=== PATIENT | female | born 2005 | race Caucasian/White ===

== ENCOUNTER 2025-06-12 15:59 | Emergency (ER) | payer OTHER, SELFPAY ==
--- OUTSIDE RECORDS SUMMARY | 2025-06-09 09:30 | XMS_ITS | Encounter Summary ---
Author Organization [facility] Address [address] [place] [address] Phone Care Team Providers Care Rn Intern Name Role Phone Lisbeth Palacio MD Primary Care Provider [phone] Reason for Visit * Reason Comments Well Visit 19 yrs Encounter Details Date Type Department Care Team ([facility] st Contact Info) Description 06/09/2025 9:30 AM EST [facility] [address] [address] Lisbeth Palacio MD [address] [place] [id number] Encounter for well adult exam with abnormal findings (Primary Dx); Need for vaccination; BMI 29.0-29.9,adult; Skin problem; Acute stress disorder; Back pain, unspecified back location, unspecified back pain laterality, unspecified chronicity; Concussion with unknown loss of consciousness status, initial encounter; Depression with anxiety; Trauma and stressor-related disorder; Vocal cord dysfunction; Oral contraceptive use Social History Tobacco Use Types Packs/Day Years Used Date Smoking Tobacco: Never Smokeless Tobacco: Never Alcohol Use Standard Drinks/Week Comments Never 0 (1 standard drink = 0.6 oz pur e alcohol) Hunger/Food Answer Date Recorded In the last 12 months, did y ou or your family ever eat less than you felt you should because there wasn't enough money for food? No 06/08/2025 Stable Housing Answer Date Recorded Are you worried that in the next 2 months you may not have stable housing? No 06/08/2025 Transportation Concerns Answer Date Rec orded In the last 12 months, have you or your family ever had to go without healthcare because you didn't have a way to get there? No 06/08/2025 Hazards in Home Answer Date Recorded Think about the place you li ve. Do you have problems with any of the following? Pests (mice or roaches), mold, no/not working smoke detectors, water leaks, no window guards. No 2024 Financing Utilities Answer Date Recorde d In the last 12 months, has t he electric, gas, oil, or water company threatened to shut off your services in your home? No 06/08/2025 Safety at Home Answer Date Recorded Are you or your family worried about feeling saf e in your home? No 06/08/2025 Outside Support Answer Date Recorded Do you feel that you need mo re support from other people or programs to help you care for yourself or your family? No 06/08/2025 Understanding Health Concerns Answer Da te Recorded Do you need help understandi ng your or your child's healthcare needs (diagnosis, medications, plan, etc.)? No 06/08/2025 Financing Health Concerns Answer Date R ecorded In the last 12 months, was t here a time when your child needed to see a doctor or get medications or supplies but could not because of cost? No 06/08/2025 Missing School or Work Answer Date Juan Alberto rded Did you or your child miss s chool or work because of a health problem that could have been avoided? No 06/08/2025 Child Education Answer Date Recorded Do you have concerns about y our/your child's learning or behavior in school, preschool, or daycare? No 06/08/2025 Comments No Sex and Gender Information Value Date Recorded Sex Assigned at Female 09/06/2023 11:14 AM EST Legal Sex Female 6:09 PM EDT Gender Identity Female 06/13/2021 5:02 PM EST Sexual Orientation Straight 09/06/2023 11 :14 AM EST documented as of this encounter Last Filed Vital Signs Vital Sign Reading Time Taken Comments Blood Pressure 110/80 06/09/2025 9:18 AM EST Pulse - - Temperature - - Respiratory Rate - - Oxygen Saturation - - Inhaled Oxygen Concentration - - Weight 83.5 kg (184 lb) 06/09/2025 9:18 AM EST Height 167.6 cm (5' 6 ) 06/09/2025 9:18 AM EST Body Mass Index 29.7 06/09/2025 9:18 AM EST documented in this encounter Patient Instructions * Patient Instructions* Lisbeth Palacio MD - 06/09/2025 9:30 AM EST Images from the original note were not included. Well Visit, Ages 18 to 65: Care Instructions Well visits can help you stay healthy. Your doctor has checked your overall health and may have suggested ways to take good care of yourself. Your doctor also may have recommended tests. You can helpprevent illness with healthy eating, good sleep, vaccinations, regular exercise, and other steps. Get the tests that you and your doctor decide on. Depending on your age and risks, examples might include screening for diabetes; hepatitis C; HIV; and cervical, breast, lung, and colon cancer. Screening helps find diseases before any symptoms appear. Eat healthy foods. Choose fruits, vegetables, whole grains, lean protein, and low-fat dairy foods. Limit saturated fat and reduce salt. Limit alcohol. Men should have no more than 2 drinks a day. Women should have no more than 1. For some people, no alcohol is the best choice. Exercise. Get at least 30 minutes of exercise on most days of the week. Walking can be a good choice. Reach and stay at your healthy weight. This will lower your risk for many health problems. Take care of your mental health. Try to stay connected with friends, family, and community, and find ways to manage stress. If you're feeling depressed or hopeless, talk to someone. A counselor can help. If you don't have acounselor, talk to your doctor. Talk to your doctor if you think you may have a problem with alcohol or drug use. This includes prescription medicines, marijuana, and other drugs. Avoid tobacco and nicotine: Don't smoke, vape, or chew. If you need help quitting, talk to your doctor. Practice safer sex. Getting tested, using condoms or dental dams, and limiting sex partners can help prevent STIs. Use control if it's important to you to prevent . Talk with your doctor about your choices and what might be best for you. Prevent problems where you can. Protect your skin from too much sun, wash your hands, brush your teeth twice a day, and wear a seat belt in the car. Where can you learn more? Scan the QR code or Go to https://www.Preventes.fr.[employer]/patientEd Enter P072 in the search box to learn more about Well Visit, Ages 18 to 65: Care Instructions. Current as of: January 19, 2025 Content Version: 14.6 ?? [employer]. Care instructions adapted under license by your healthcare professional. If you have questions about a medical condition or this instruction, always ask your healthcare professional. [employer], disclaims any warranty or liability for your use of this information. Learning About Dental Care Basic dental care includes brushing and flossing your teeth. It also includes going to your dentistfor checkups and cleanings. This care can help your teeth last a long time. Brushing and flossing remove plaque. Plaque is bacteria that can cause gum disease and cavities (holes in your teeth from tooth decay). Brushing and flossing also remove bacteria that cause bad breath. And they help prevent stains on your teeth. What can you do to prevent dental problems? Blanca your teeth twice a day, and floss at least once a day. Replace your toothbrush every 3 to 4 months. Choose a toothbrush with soft bristles. Use a fluoride toothpaste. Follow your dentist's directions on how to brush your teeth. Go to all your regular dental checkups and cleanings. Choose healthy foods that are good for your teeth and gums, such as whole grains, vegetables, and fruits. Avoid foods and drinks that contain a lot of sugar, and try not to snack before bedtime. Avoid using tobacco products, and talk to your doctor if you need help quitting. Where can you learn more? Scan the QR code or Go to https://www.Preventes.fr.net/patientEd Enter C432 in the search box to learn more about Learning About Dental Care. Current as of: February 19, 2024 Content Version: 14.6 ?? [employer]. Care instructions adapted under license by your healthcare professional. If you have questions about a medical condition or this instruction, always ask your healthcare professional. [employer], disclaims any warranty or liability for your use of this information. documented in this encounter Progress Notes * Lisbeth Palacio MD - 06/09/2025 9:30 AM EST Chief Complaint Well Visit (19 yrs) History of Present Illness Morena is a 19 y.o. female who presents to the office alone. Specialists since last WCC: none Recent ER/urgent care visits: UC 3 weeks ago blisters Concerns: blisters Diet, Elimination, Education, Activities, Home Environment Recurring blisters on foot, was tx for athlete's foot in past it worked. About 3 wks ago was given abx pills, it went away, now came back over a week ago. Itches. 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 No lead risk factors. No firearms in the house. CO detectors in the home. Smoke detectors in the home. Properly restrained in the car. . DCF: No Fathers occupation: Specialty Printing Pets at Home: Yes Dog, Cats Lives with parents, brother and sister PHQ-4 Anxiety Screen = 1 (Positive > 2) PHQ-4 Depression Screen = 0 (Positive > 2) Review of Systems Negative except as in HPI. Marked as Taking Medication Sig EPINEPHrine 0.3 MG/0.3ML injection syringe INJECT INTRAMUSCULARLY FOR ALLERGIC REACTIONS, CALL 911 SEEK MEDICAL ATTENTION fexofenadine 180 MG tablet Take 2 tablets (360 mg total) by mouth once daily. norgestimate-ethinyl estradiol 0.25-35 MG-MCG per tablet TAKE 1 TABLET BY MOUTH EVERY DAY Allergies Allergen Reactions Environmental Dust mites, trees, mold, pollen, cat, dog, feathers Soy Allergy (Obsolete) Menses Hx: Pattern: regular Comments: Period more regular. Taking OCP daily Vital Signs BP 110/80 Ht 5' 6 (167.6 cm) Wt 184 lb (83.5 kg) BMI 29.70 kg/m?? Labs Lab Results Component Value Date Hemoglobin, POC 11.6 06/09/2025 Labs Results for orders placed or performed in visit on 06/09/25 POCT hemoglobin Result Value Ref Range Hemoglobin, POC 11.6 11.4 - 14.8 g/dL POCT , urine Result Value Ref Range Preg Test, Urine, POC Negative Negative, Presumptive negative Control Band Present Present Physical Exam General Well appearing, no acute distress Head Normocephalic/atraumatic Eyes PERRLA, EOMI Ears Canals normal, TMs translucent bilaterally Nose Nares patent and clear Mouth/ Throat Oropharynx clear, moist mucous membranes Neck Supple, no cervical adenopathy, thyroid normal Cor Regular rate and rhythm, no murmurs Lungs Clear to auscultation bilaterally Chest/Back Symmetric chest and breasts, no scoliosis Abdomen Soft, non-distended, non-tender, no organomegaly, normal bowel sounds deferred Extremities Warm, well perfused Skin No rash, plantar surface of left foot with some peeling and new skin Neuro Normal strength upper and lower extremities, normal balance and gait Assessment and Plan Encounter for well adult exam with abnormal findings (Primary) - Brief Behavioral Assessment - Normal (PSC,PHQ9,Olya,etc) - Chlamydia and Gonorrhoea, Amplified - POCT hemoglobin - POCT , urine Need for vaccination Comments: She declined COVID booster today. Orders: - IIV3 Influenza, split virus, trivalent, PF, IM BMI 29.0-29.9,adult Skin problem Assessment & Plan: Left foot with recurrent blistering and peeling. Was tx with oral abx via 3 weeks ago, today hasnew skin and some peeling. Refer to Podiatry, numbers given. Orders: - mupirocin 2 % ointment; Apply topically 3 (three) times a day for 7 days. To area on bottom of left foot Dispense: 30 g; Refill: 0 Acute stress disorder Assessment & Plan: She is doing well at the current time with good support from family, friends, boyfriend. Encouragedto reach out at any time to re establish counseling as needed. Back pain, unspecified back location, unspecified back pain laterality, unspecified chronicity Assessment & Plan: Not a current concern. Concussion with unknown loss of consciousness status, initial encounter Assessment & Plan: Has resolved. Depression with anxiety Assessment & Plan: She is doing well at the current time with good support from family, friends, boyfriend. Encouragedto reach out at any time to re establish counseling as needed. Trauma and stressor-related disorder Assessment & Plan: She is doing well at the current time with good support from family, friends, boyfriend. Encouragedto reach out at any time to re establish counseling as needed. Vocal cord dysfunction Assessment & Plan: Not a current concern. Oral contraceptive use Assessment & Plan: Is happy with her OCP, is getting menses during the expected week. She requests testing today which is negative. Encouraged to use condoms every time. I counseled the family and/or patient on the recommended vaccine(s). Risks and benefits reviewed for all components of the vaccine(s) administered. Current Vaccine Information Statement (VIS) given prior to administering vaccine(s). See Vaccination Log in electronic health record for immunization details. Counseled and reviewed: Physical activity and diet Drugs, tobacco, and alcohol Seat belt and helmet for bicycle Sexual activity, safe sex practices, and healthy relationships Self-breast exam; encouraged to be done monthly Follow-up and Dispositions Return in about 1 year (around 06/09/2026) for Well Visit, sooner if needed. documented in this encounter Miscellaneous Notes * Assessment & Plan Note - Lisbeth Palacio MD - 06/09/2025 9:54 AM EST Associated Problem(s): Oral contraceptive use Is happy with her OCP, is getting menses during the expected week. She requests testing today which is negative. Encouraged to use condoms every time. * Assessment & Plan Note - Lisbeth Palacio MD - 06/09/2025 9:53 AM EST Associated Problem(s): Vocal cord dysfunction Not a current concern. * Assessment & Plan Note - Lisbeth Palacio MD - 06/09/2025 9:52 AM EST Associated Problem(s): Trauma and stressor-related disorder She is doing well at the current time with good support from family, friends, boyfriend. Encouragedto reach out at any time to re establish counseling as needed. * Assessment & Plan Note - Lisbeth Palacio MD - 06/09/2025 9:51 AM EST Associated Problem(s): Depression with anxiety She is doing well at the current time with good support from family, friends, boyfriend. Encouragedto reach out at any time to re establish counseling as needed. * Assessment & Plan Note - Lisbeth Palacio MD - 06/09/2025 9:51 AM EST Associated Problem(s): Concussion (Resolved 06/09/2025) Has resolved. * Assessment & Plan Note - Lisbeth Palacio MD - 06/09/2025 9:50 AM EST Associated Problem(s): Back pain Not a current concern. * Assessment & Plan Note - Lisbeth Palacio MD - 06/09/2025 9:50 AM EST Associated Problem(s): Acute stress disorder (Resolved 06/09/2025) She is doing well at the current time with good support from family, friends, boyfriend. Encouragedto reach out at any time to re establish counseling as needed. * Assessment & Plan Note - Lisbeth Palacio MD - 06/09/2025 9:36 AM EST Associated Problem(s): Skin problem Left foot with recurrent blistering and peeling. Was tx with oral abx via UC 3 weeks ago, today hasnew skin and some peeling. Refer to Podiatry, numbers given. documented in this encounter Plan of Treatment Upcoming Encounters Date Type Department Care Team (Late st Contact Info) Description 06/15/2026 9:30 AM EST [facility] Visit [facility] [address] [address] Lisbeth Palacio MD [address] [place] [id number] documented as of this encounter Procedures * Due to [facility] law, this organization might not be sharing sensitive test results. Procedure Name Priority Date/Time Associated Diagnosis Comments POCT , URINE Routine 06/09/2025 9:58 AM EST Encounter for well adult exam with abnormal findings CHLAMYDIA AND GONORRHEA, AMPLIFIED Routine 06/09/2025 9:48 AM EST Encounter for well adult exam with abnormal findings POCT HEMOGLOBIN Routine 06/09/2025 9:24 AM EST Encounter for well adult exam with abnormal findings BRIEF BEHAVIORAL ASSESSMENT - NORMAL(PSC,PHQ9,VAND ERBILT,ETC) Routine 06/09/2025 9:16 AM EST Encounter for well adult exam with abnormal findings documented in this encounter Results * Due to [facility] law, this organization might not be sharing sensitive test results. * POCT , urine (06/09/2025 9:58 AM EST) Preg Test, Urine, POC Negative Negative, Presumptive negative [facility] Control Band Present Present [facility] Urine 06/09/2025 9:58 AM EST us Lisbeth Palacio MD POINT OF CARE TEST ORDERABLES Final Result [facility] [address] [address] * Chlamydia and Gonorrhoea, Amplified (06/09/2025 9:48 AM EST) C trach KEVIN Negative Negative [facility] N gonorrhoeae KEVIN Negative Negative [facility] Urine (Urine) 06/09/2025 9:4 8 AM EST 06/09/2025 Comment:Urine Narrative [facility] - 06/10/2025 5:05 PM EST Performed at: 01 - [facility], [address], [place], [place] [id number] Expedition Supervisor: Juan R Mendoza MD, Phone: [phone] us Lisbeth Palacio MD LAB MICROBIOLOGY - GENERAL OR DERABLES Final Result Performing Organization Address City/[facility] Co de Phone Number [facility] [address] [place] [address] * POCT hemoglobin (06/09/2025 9:24 AM EST) Hemoglobin, POC 11.6 11.4 - 14.8 g/dL [facility] Blood (Blood) 06/09/2025 9:2 4 AM EST us Lisbeth Palacio MD POINT OF CARE TEST ORDERABLES Final Result [facility] [address] [address] documented in this encounter Visit Diagnoses Diagnosis Encounter for well adult exam with abnormal findings- Primary Need for vaccination Need for prophylactic vaccination and inoculation against unspecified single disease BMI 29.0-29.9,adult Skin problem Acute stress disorder Unspecified acute reaction to stress Back pain, unspecified back location, unspecified back pain laterality, unspecified chronicity Concussion with unknown loss of consciousness status, initial encounter Depression with anxiety Dysthymic disorder Trauma and stressor-related disorder Vocal cord dysfunction Other diseases of vocal cords Oral contraceptive use documented in this encounter Care Teams Rn Intern Relationship Specialty Start Date End Date Lisbeth Palacio MD [address] [place] [address] PCP - General Pediatrics 06/08/25 documented as of this encounter
--- OUTSIDE RECORDS SUMMARY | 2025-06-12 15:59 | XMS_ITS | Encounter Summary ---
Author Organization [facility] Address [address] [place] [address] Phone Care Team Providers Care Sld Educational Aide Name Role Phone Lisbeth Palacio MD Primary Care Provider [phone] Reason for Visit * Reason Comments ED Admission Encounter Details Date Type Department Care Team ([facility] st Contact Info) Description 06/12/2025 3:59 PM EST - Present Emergency [facility] - Patient Ping Social History Tobacco Use Types Packs/Day Years [...] AM EST documented as of this encounter Plan of Treatment Upcoming Encounters Date Type Department Care Team (Late st Contact Info) Description 06/15/2026 9:30 AM EST [facility] [address] [address] Lisbeth Palacio MD [address] [place] [address] documented as of this encounter Visit Diagnoses Not on filedocumented in this encounter Care Teams Sld Educational Aide Relationship Specialty Start Date End Date Lisbeth Palacio MD [address] [place] [address] PCP - General Pediatrics 06/08/25 documented as of this encounter
[2025-06-12 16:04] VITALS: BP 147/74; PULSE 110; RESP 18; TEMP 36.2; O2SAT 98
--- NOTE | 2025-06-12 16:09 | ED_ITS ---
HPI - General Adult General Chief complaint: Extremity Injury, Lower Stated complaint: Foot pain/blisters Time Seen by Provider: 06/12/25 17:01 Source: patient, RN notes reviewed and old records reviewed Mode of arrival: ambulatory Limitations: no limitations History of Present Illness ED Provider: Clari BOLAND narrative: 19-year-old female presents for evaluation of left foot infection. She reports that she has been dealing with a rash to her left foot on and off for about a year. She has been treated multiple times pain She has received antifungals for athlete's foot She had received oral antibiotics and is currently on a topical antibiotics. She reports that her symptoms did improve on cephalexin about a month and a half ago but never completely resolved. The patient further states that her symptoms started after my foot was cut on a hard bristle bath mat. denies any fevers, chills Related Data Previous Rx's ?Medication ?Instructions ?Recorded levofloxacin 750 mg tablet 750 mg PO Q24H #7 tabs 05/23 09/15 Allergies Allergy/AdvReac Type Severity Reaction Status Date / Time soy Allergy Unknown Verified 06/12/25 16:07 Review of Systems 2 Constitutional: Constitutional: Denies body ache(s), Denies chills, Denies fever(s) and Denies headache(s) Eyes: Eyes: Denies blurry vision ENT: Denies vertigo, Denies dizziness and Denies headache(s) Cardiovascular: Cardiovascular: Denies chest pain and Denies dyspnea on exertion Respiratory: Respiratory: Denies cough and Denies dyspnea on exertion Gastrointestinal: Gastrointestinal: Denies abdominal pain Integumentary/Breasts: Skin/Breast: Reports erythema and Reports wounds Neurologic: Denies vertigo, Denies dizziness and Denies headache(s) PMFSH Social History Social History Advance Directives: No Advance Directives Information Provided: No Do you have a plan to hurt others: No Plan Physical Exam ED Vital Signs: Vital Signs - 24 hr 06/12/25 16:04 Temperature 97.1 F Pulse Rate 110 H Respiratory Rate 18 Blood Pressure 147/74 H Pulse Oximetry 98 Oxygen Delivery Method Room Air BMI result Body Mass Index 30.0 Const General: healthy appearing, comfortable, no acute distress, alert and awake Nutritional Appearance: well nourished Orientation/consciousness: patient oriented x3 HENMT Head: Yes normocephalic and Yes atraumatic Eyes Eyelids: Yes eyelids normal Conjunctivae: conjunctivae normal Sclerae: sclerae normal Corneas: corneas normal Pupils: Equal, round and reactive pupils present EOM: EOMs intact bilaterally Neck Neck: Yes full ROM Resp Effort & Inspection: normal respiratory effort, able to speak in complete sentences and not labored Skin Other: there was an erythematous rash to the dorsum of the left foot extending to the lateral aspect of the left foot and 5th toe. There are multiple vesicles, the area is tender to palpation. There is some central skin breakdown, no obvious purulence. No streaking erythema in the rash is not circumferential Neuro General: patient oriented x3 Cranial nerves: Yes Equal, round and reactive pupils present and Yes Bilaterally intact EOM present Cognition (Neuro): normal cognition Course Course Course Narrative: RME, this is a rapid medical exam performed by Luis F Montague please refer to primary provider for complete H&P- 19-year-old female presents for evaluation of a painful rash to her left foot. She has blistering erythema. She reports being treated with cephalexin a month and a half ago with some improvement but her symptoms returned. Plan for basic labs, inflammatory markers. Medical Decision Making Medical Decision Making MDM Narrative: 19-year-old female presents for evaluation of a recurrent rash to her left foot. Her symptoms started after she was cut after stepping wet bath mat. She reports the mat was made of hard bristles. Basic labs were ordered in she does not have a leukocytosis. Her ESR was normal limits but her CRP is slightly elevated. Labs are otherwise reassuring, she is not . Discussed with my attending, plan to treat the patient with Levaquin to cover Pseudomonas given the patient's history. She will be referred to Podiatry for further evaluation and management as well as Dermatology for possible skin scraping. Vitals are stable and she is well-appearing. She is not meet sepsis criteria. Considered additional workup to evaluate for foreign body triage but ultimately given that her symptoms started about a year ago for this could be managed as an outpatient as it would not change the current management. Differential Diagnosis Differential Diagnoses: The differential diagnosis associated with the presentation includes Cellulitis Foreign body Dermatitis Pseudomonas aeruginosa folliculitis Lab Data 06/12/25 16:24 06/12/25 16:24 Labs: Lab Results 06/12/25 Range/Units 16:24 WBC 7.6 (4.8-10.8) X10*3/uL RBC 4.73 (4.20-5.50) X10*6/uL Hgb 13.7 (12.0-16.0) g/dl Hct 41.5 (37.0-47.0) % MCV 87.7 (80.0-98.0) fL MCH 29.0 (27.0-33.0) pg MCHC 33.0 (31.0-35.0) g/dl RDW 12.6 (11.0-16.0) % Plt Count 348 (160-400) X10*3/uL MPV 8.7 L (9.4-12.3) fL Immature Gran % (Auto) 0.1 (0.0-0.4) % Neut % (Auto) 60.5 (45-73) % Lymph % (Auto) 24.3 (20-40) % [place] % (Auto) 6.4 (2-11) % Eos % (Auto) 7.5 H (0-4) % Baso % (Auto) 1.2 (0-2) % Lymph # (Auto) 1.9 (1.2-4.9) X10*3/uL [place] # (Auto) 0.5 (0.1-1.2) X10*3/uL Eos # (Auto) 0.6 H (0.0-0.4) X10*3/uL Baso # (Auto) 0.1 (0.0-0.2) X10*3/uL Abs Immat Gran (auto) 0.01 (0.00-0.03) X10*3/uL Absolute Neuts (auto) 4.6 (2.0-8.3) x10*3/uL Absolute Nucleated RBC 0.000 (0.0-0.012) X10*3/uL Nucleated RBC % (auto) 0.0 (0.0-0.2) /100WBC ESR 3 (0-20) MM/HR Sodium 142 (135-145) mmol/L Potassium 3.8 (3.3-5.1) mmol/L Chloride 108 (96-108) mmol/L Carbon Dioxide 24 (22-29) mmol/L Anion Gap 14 (12-20) BUN 7 L (9-16) mg/dL Creatinine 0.59 (0.5-1.4) mg/dL Estim Creat Clear Calc 161.8 Estimated GFR > 60 Random Glucose 100 (60-115) mg/dL Calcium 9.5 (8.4-10.2) mg/dL Total Bilirubin 0.4 (0.0-1.0) mg/dL AST 21 (5-31) U/L ALT 12 (0-31) U/L Alkaline Phosphatase 66 (39-117) U/L C-Reactive Protein 1.84 H (< or = 0.50) mg/dL Total Protein 7.2 (6.5-8.0) g/dL Albumin 4.4 (3.5-5.0) g/dL Beta HCG, Quant < 2 mIU/mL Discharge Plan Discharge Clinical Impression: Cellulitis of left foot Patient Disposition: Home, Self-Care Instructions: Cellulitis (ED) Additional Instructions: your rash is consistent with a skin infection. I recommend that you follow up with Podiatry at the number provided. It is possible that you have a foreign body that has causing recurrent infections. Take the antibiotic once daily for 1 week. It is important that you are not overly active while taking this medication as it can cause tendon injury pain You should avoid running or heavy lifting Prescriptions: New levofloxacin 750 mg tablet 750 mg PO Q24H Qty: 7 0RF Referrals: [facility] [Provider Group] [facility] [Provider Group, Podiatry] Referral Note: left foot rash Stand Alone Forms: Work/School Release Print Language: Slovak
[2025-06-12 16:30] LABS: Hematocrit 41.5 % (37.0-47.0); Hemoglobin 13.7 g/dl (12.0-16.0); Imm Gran Abs Auto 0.01 X10*3/uL (0.00-0.03); Imm Gran Pct Auto 0.1 % (0.0-0.4); Lymphocytes Absolute Auto 1.9 X10*3/uL (1.2-4.9); MANUAL DIFF FLAG NO; Mean Corpuscular HGB Conc 33.0 g/dl (31.0-35.0); Mean Corpuscular Hemoglobin 29.0 pg (27.0-33.0); Mean Corpuscular Volume 87.7 fL (80.0-98.0); NRBC Abs Auto 0.000 X10*3/uL (0.0-0.012); NRBC Pct Auto 0.0 /100WBC (0.0-0.2); Platelet Count 348 X10*3/uL (160-400); Red Blood Count 4.73 X10*6/uL (4.20-5.50); White Blood Count 7.6 X10*3/uL (4.8-10.8)
[2025-06-12 16:54] LABS: Alanine Aminotransferase 12 U/L (0-31); Albumin Level 4.4 g/dL (3.5-5.0); Alkaline Phosphatase 66 U/L (39-117); Anion Gap 14 (12-20); Aspartate Amino Transferase 21 U/L (5-31); Blood Urea Nitrogen 7 mg/dL (9-16); Calcium 9.5 mg/dL (8.4-10.2); Carbon Dioxide 24 mmol/L (22-29); Chloride 108 mmol/L (96-108); Creatinine Clr Calc Pharmacy 161.8; Estimated Glomerular Filt Rate > 60; Potassium 3.8 mmol/L (3.3-5.1); Sodium 142 mmol/L (135-145); Total Protein 7.2 g/dL (6.5-8.0)
--- OUTSIDE RECORDS SUMMARY | 2025-06-12 17:19 | XMS_ITS | Encounter Summary ---
Author Organization [facility] Address [address] [place] [address] Phone Care Team Providers Care Contract Runner Name Role Phone Lisbeth Palacio MD Primary Care Provider [phone] Reason for Visit * Reason Comments Med Refill Encounter Details Date Type Department Care Team ([facility] st Contact Info) Description 09/01/2020 [facility]ill [facility] [address] [address] Azul Luo MD [address] [place] [id number] Dysmenorrhea Social History Tobacco Use Types Packs/Day Years Used Date Smoking Tobacco: Never Smokeless Tobacco: Never Alcohol Use Standard Drinks/Week Comments Never 0 (1 standard drink = 0.6 oz pur e alcohol) Hunger/Food Answer Date Recorded In the last 12 months, did y ou or your family ever eat less than you felt you should because there wasn't enough money for food? No 01/04/2020 Stable Housing Answer Date Recorded Are you worried that in the next 2 months you may not have stable housing? No 01/04/2020 Transportation Concerns Answer Date Rec orded In the last 12 months, have you or your family ever had to go without healthcare because you didn't have a way to get there? No 01/04/2020 Hazards in Home Answer Date Recorded Think about the place you li ve. Do you have problems with any of the following? Pests (mice or roaches), mold, no/not working smoke detectors, water leaks, no window guards. No 2019 Financing Utilities Answer Date Recorde d In the last 12 months, has t he electric, gas, oil, or water company threatened to shut off your services in your home? No 01/04/2020 Safety at Home Answer Date Recorded Are you or your family worried about feeling saf e in your home? No 01/04/2020 Outside Support Answer Date Recorded Do you feel that you need mo re support from other people or programs to help you care for yourself or your family? No 01/04/2020 Understanding Health Concerns Answer Da te Recorded Do you need help understandi ng your or your child's healthcare needs (diagnosis, medications, plan, etc.)? No 01/04/2020 Financing Health Concerns Answer Date R ecorded In the last 12 months, was t here a time when your child needed to see a doctor or get medications or supplies but could not because of cost? No 01/04/2020 Missing School or Work Answer Date Juan Alberto rded Did you or your child miss s chool or work because of a health problem that could have been avoided? No 01/04/2020 Comments No Sex and Gender Information Value Date Recorded Sex Assigned at Female 09/06/2023 11:14 AM EST Legal Sex Female 6:09 PM EDT Gender Identity Female 06/13/2021 5:02 PM EST Sexual Orientation Straight 09/06/2023 11 :14 AM EST documented as of this encounter Miscellaneous Notes * Telephone Encounter - Yomaira Nash MA - 09/01/2020 8:20 AM EST Request for refill on Estarylla OCP Forward to Dr. Luo for review and send to the pharmacy. Thanks documented in this encounter Plan of Treatment Upcoming Encounters Date Type Department Care Team (Late st Contact Info) Description 06/15/2026 9:30 AM EST Office Visit [facility] [address] [address] Lisbeth Palacio MD [address] [place] [phone] documented as of this encounter Visit Diagnoses Diagnosis Dysmenorrhea documented in this encounter Care Teams Contract Runner Relationship Specialty Start Date End Date Lisbeth Palacio MD [address] [place] [address] PCP - General Pediatrics 06/08/25 documented as of this encounter
--- OUTSIDE RECORDS SUMMARY | 2025-06-12 17:20 | XMS_ITS | Encounter Summary ---
Author Organization [facility] Address [address] [place] [address] Phone Care Team Providers Care Tree Fruit And Nut Farming Supervisor Name Role Phone Lisbeth Palacio MD Primary Care Provider [phone] Reason for Visit * Reason Comments Med Refill Encounter Details Date Type Department Care Team ([facility] st Contact Info) Description 07/23/2022 [facility]ill [facility] [address] [address] Azul Luo MD [address] [place] [id number] Trauma and stressor-related disorder Social History Tobacco Use Types Packs/Day Years Used Date Smoking Tobacco: Never Smokeless Tobacco: Never Alcohol Use Standard Drinks/Week Comments Never 0 (1 standard drink = 0.6 oz pur e alcohol) Hunger/Food Answer Date Recorded In the last 12 months, did y ou or your family ever eat less than you felt you should because there wasn't enough money for food? No 01/10/2021 Stable Housing Answer Date Recorded Are you worried that in the next 2 months you may not have stable housing? No 01/10/2021 Transportation Concerns Answer Date Rec orded In the last 12 months, have you or your family ever had to go without healthcare because you didn't have a way to get there? No 01/10/2021 Hazards in Home Answer Date Recorded Think about the place you li ve. Do you have problems with any of the following? Pests (mice or roaches), mold, no/not working smoke detectors, water leaks, no window guards. No 2020 Financing Utilities Answer Date Recorde d In the last 12 months, has t he electric, gas, oil, or water company threatened to shut off your services in your home? No 01/10/2021 Safety at Home Answer Date Recorded Are you or your family worried about feeling saf e in your home? No 01/10/2021 Outside Support Answer Date Recorded Do you feel that you need mo re support from other people or programs to help you care for yourself or your family? No 01/10/2021 Understanding Health Concerns Answer Da te Recorded Do you need help understandi ng your or your child's healthcare needs (diagnosis, medications, plan, etc.)? No 01/10/2021 Financing Health Concerns Answer Date R ecorded In the last 12 months, was t here a time when your child needed to see a doctor or get medications or supplies but could not because of cost? No 01/10/2021 Missing School or Work Answer Date Juan Alberto rded Did you or your child miss s chool or work because of a health problem that could have been avoided? No 01/10/2021 Comments No Sex and Gender Information Value Date Recorded Sex Assigned at Female 09/06/2023 11:14 AM EST Legal Sex Female 6:09 PM EDT Gender Identity Female 06/13/2021 5:02 PM EST Sexual Orientation Straight 09/06/2023 11 :14 AM EST documented as of this encounter Miscellaneous Notes * Telephone Encounter - Jazmin Gilbert - 07/23/2022 12:40 PM EST Request for sertraline 20 mg [facility] 06/25/22 Unsure if pt still on. Please refuse if not documented in this encounter Plan of Treatment Upcoming Encounters Date Type Department Care Team (Late st Contact Info) Description 06/15/2026 9:30 AM EST [facility] Visit [facility] [address] [address] Lisbeth Palacio MD [address] [place] [address] [id number] documented as of this encounter Visit Diagnoses Diagnosis Trauma and stressor-related disorder documented in this encounter Care Teams [employer] Supervisor Relationship Specialty Start Date End Date Lisbeth Palacio MD [address] [place] [address] PCP - General Pediatrics 06/08/25 documented as of this encounter
--- OUTSIDE RECORDS SUMMARY | 2025-06-12 17:20 | XMS_ITS | Encounter Summary ---
Author Organization [facility] Address [address] [place] [phone] Phone Care Team Providers Care Senior Reliability Engineer Name Role Phone Lisbeth Palacio MD Primary Care Provider [phone] Encounter Details Date Type Department Care Team (Late st Contact Info) Description 12/08/2017 Conversion Encounter [facility] [address] [address] Jamshid Ovalle MD Social History Tobacco Use Types Packs/Day Years Used Date Smoking Tobacco: Never Assessed Comments Unknown Sex and Gender Information Value Date Recorded [...] AM EST [facility] Visit [facility] [address] [address] Lisbeth Palacio MD [address] [place] [address] documented as of this encounter Visit Diagnoses Not on filedocumented in this encounter Care Teams Senior Reliability Engineer Relationship Specialty Start Date End Date Lisbeth Palacio MD [address] [place] [address] PCP - General Pediatrics 06/08/25 documented as of this encounter
--- OUTSIDE RECORDS SUMMARY | 2025-06-12 17:20 | XMS_ITS | Encounter Summary ---
Author Organization [facility] Address [address] [place] [address] Phone Care Team Providers Care Refrigerator Room Clerk Name Role Phone Lisbeth Palacio MD Primary Care Provider [phone] Reason for Visit * Reason Onset Date Comments Med Refill 08/05/2021 Sleep Study 08/05/2021 Encounter Details Date Type Department Care Team ([facility] st Contact Info) Description 08/05/2021 [facility]ill [facility] [address] [address] Azul Luo MD [address] [place] [id number] Dysmenorrhea Social History Tobacco Use Types Packs/Day [...] Telephone Encounter - Yomaira Nash MA - 09/29/2021 11:40 AM EST Mom notified * Telephone Encounter - Yomaira Nash MA - 09/29/2021 9:58 AM EST Response from [facility] Sleep Medicine appt on 11/03/21 @ 7:45 pm 1 parent must be with ronna Auguste. LM for mom OMAR Wu. * Telephone Encounter - Jazmin Gilbert - 09/20/2021 8:36 AM EST Form faxed to [facility] [phone] * Telephone Encounter - Azul Luo MD - 09/19/2021 4:07 PM EST Please set up sleep study for disrupted sleep, prolonged initiation and early waking. Family requests a Saturday or Saturday night if at all possible * Telephone Encounter - Camilla Segura MD - 08/07/2021 8:55 AM EST OK, thanks * Telephone Encounter - Nelly Costa LPN - 08/07/2021 8:44 AM EST Her refill was 84 tabs with 4 refills. Like a year supply * Telephone Encounter - Cmailla Segura MD - 08/07/2021 8:39 AM EST Last refill almost a year ago.. if she really is needing this, probably best to come in. * Telephone Encounter - Nelly Costa LPN - 08/07/2021 7:41 AM EST Refill request from the pharmacy BCP Last refill 09/01/20 Last [facility] 01/10/21 Last recheck has med recheck 09/19/21 Send to the pharmacy on file documented in this encounter Plan of Treatment Upcoming Encounters Date Type Department Care Team (Late st Contact Info) Description 06/15/2026 9:30 AM EST [facility] Visit [facility] [address] [address] Lisbeth Palacio MD [address] [place] [address] documented as of this encounter Visit Diagnoses Diagnosis Dysmenorrhea documented in this encounter Care Teams Refrigerator Room Clerk Relationship Specialty Start Date End Date Lisbeth Palacio MD [address] [place] [address] PCP - General Pediatrics 06/08/25 documented as of this encounter
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
--- OUTSIDE RECORDS SUMMARY | 2025-06-12 17:20 | XMS_ITS | Encounter Summary ---
Author Organization [facility] Address [address] [place] [address] Phone Care Team Providers Care Ssn/Ssbn Weapons Equipment Operator Name Role Phone Lisbeth Palacio MD Primary Care Provider [phone] Reason for Visit * Reason Onset Date Comments Med Refill 10/05/2022 Encounter Details Date Type Department Care Team ([facility] st Contact Info) Description 10/05/2022 Refill [facility] [address] [address] Azul Luo MD [address] [place] [phone] Environmental allergies Social History Tobacco Use Types Packs/Day Years [...] encounter Miscellaneous Notes * Telephone Encounter - Azul Luo MD - 10/05/2022 9:15 AM EDT Refill sent to pharmacy on record * Telephone Encounter - Yomaira Nash CMA - 10/05/2022 9:04 AM EDT Request for refill on Gloria allergy Forward to Dr. Luo. Thanks documented in this encounter Plan of Treatment Upcoming Encounters Date Type Department Care Team (Late st Contact Info) Description 06/15/2026 9:30 AM EST [facility] Visit [facility] [address] [address] Lisbeth Palacio MD [address] [place] [address] documented as of this encounter Visit Diagnoses Diagnosis Environmental allergies Other allergy, other than to medicinal agents documented in this encounter Care Teams Ssn/Ssbn Weapons Equipment Operator Relationship Specialty Start Date End Date Lisbeth Palacio MD [address] [place] [address] PCP - General Pediatrics 06/08/25 documented as of this encounter
--- OUTSIDE RECORDS SUMMARY | 2025-06-12 17:20 | XMS_ITS | Encounter Summary ---
Author Organization [facility] Address [address] [place] [address] Phone Care Team Providers Care Snout Puller Name Role Phone Lisbeth Palacio MD Primary Care Provider [phone] Encounter Details Date Type Department Care Team ([facility] st Contact Info) Description 06/09/2025 Results [facility]Up [facility] [address] [address] Yamini Goodman CMA [address] [place] [phone] Social History Tobacco Use Types Packs/Day Years [...] as of this encounter Miscellaneous Notes * Result Encounter Note - Yamini Goodman CMA - 06/09/2025 10:15 AM EST POCT labs normal * Result Encounter Note - Yamini Goodman CMA - 06/09/2025 9:44 AM EST POCT labs normal documented in this encounter Plan of Treatment Upcoming Encounters Date Type Department Care Team (Late st Contact Info) Description 06/15/2026 9:30 AM EST [facility] Visit [facility] [address] [address] Lisbeth Palacio MD [address] [place] [address] documented as of this encounter Visit Diagnoses Not on filedocumented in this encounter Care Teams Snout Puller Relationship Specialty Start Date End Date Lisbeth Palacio MD [address] [place] [address] PCP - General Pediatrics 06/08/25 documented as of this encounter
--- OUTSIDE RECORDS SUMMARY | 2025-06-12 17:20 | XMS_ITS | Encounter Summary ---
Author Organization [facility] Address [address] [place] [address] Phone Care Team Providers Care Bow String Maker Name Role Phone Lisbeth Palacio MD Primary Care Provider [phone] Reason for Visit * Reason Onset Date Comments Med Refill 06/02/2025 Encounter Details Date Type Department Care Team ([facility] st Contact Info) Description 06/02/2025 Refill [facility] [address] [address] Azul Luo MD [address] [place] [phone] Environmental allergies Social History Tobacco Use Types [...] there wasn't enough money for food? No 08/30/2023 Stable Housing Answer Date Recorded Are you worried that in the next 2 months you may not have stable housing? No 08/30/2023 Transportation Concerns Answer Date Rec orded In the last 12 months, have you or your family ever had to go without healthcare because you didn't have a way to get there? No 08/30/2023 Hazards in Home Answer Date Recorded Think about the place you li ve. Do you have problems with any of the following? Pests (mice or roaches), mold, no/not working smoke detectors, water leaks, no window guards. No 2023 Financing Utilities Answer Date Recorde d In the last 12 months, has t he electric, gas, oil, or water company threatened to shut off your services in your home? No 08/30/2023 Safety at Home Answer Date Recorded Are you or your family worried about feeling saf e in your home? No 08/30/2023 Outside Support Answer Date Recorded Do you feel that you need mo re support from other people or programs to help you care for yourself or your family? No 08/30/2023 Understanding Health Concerns Answer Da te Recorded Do you need help understandi ng your or your child's healthcare needs (diagnosis, medications, plan, etc.)? No 08/30/2023 Financing Health Concerns Answer Date R ecorded In the last 12 months, was t here a time when your child needed to see a doctor or get medications or supplies but could not because of cost? No 08/30/2023 Missing School or Work Answer Date Juan Alberto rded Did you or your child miss s chool or work because of a health problem that could have been avoided? No 08/30/2023 Comments No Sex and Gender Information Value Date Recorded Sex Assigned at Female 09/06/2023 11:14 AM EST Legal Sex Female 6:09 PM EDT Gender Identity Female 06/13/2021 5:02 PM EST Sexual Orientation Straight 09/06/2023 11 :14 AM EST documented as of this encounter Miscellaneous Notes * Telephone Encounter - Nelly Costa LPN - 06/02/2025 5:53 PM EST Refill request Fexofenadine 180 mg Last refill 08/04/24 Last WCC overdue but has an appt for 06/09/25 Last recheck none recently Send to the pharmacy on file documented in this encounter Plan of Treatment Upcoming Encounters Date Type Department Care Team (Late st Contact Info) Description 06/15/2026 9:30 AM EST [facility] Visit [facility] [address] [address] Lisbeth Palacio MD [address] [place] [phone] documented as of this encounter Visit Diagnoses Diagnosis Environmental allergies Other allergy, other than to medicinal agents documented in this encounter Care Teams Bow String Maker Relationship Specialty Start Date End Date Lisbeth Palacio MD [address] [place] [address] PCP - General Pediatrics 06/08/25 documented as of this encounter
--- OUTSIDE RECORDS SUMMARY | 2025-06-12 17:20 | XMS_ITS | Encounter Summary ---
Author Organization [facility] Address [address] [place] [address] Phone Care Team Providers Care Compressed Yeast Supervisor Name Role Phone Lisbeth Palacio MD Primary Care Provider [phone] Reason for Visit * Reason Comments Med Refill Encounter Details Date Type Department Care Team ([facility] st Contact Info) Description 05/27/2023 Refill [facility] [address] [address] Azul Luo MD [address] [place] [phone] Environmental allergies Social History Tobacco Use Types [...] Telephone Encounter - Azul Luo MD - 05/27/2023 10:09 AM EST Refill sent to pharmacy on record * Telephone Encounter - Danielle Abdul MA - 05/27/2023 10:07 AM EST Refill request for Fexofenadine 180 mg Last [facility] 06/25/22 Refilled 03/12/23 Please review documented in this encounter Plan of Treatment Upcoming Encounters Date Type Department Care Team (Late st Contact Info) Description 06/15/2026 9:30 AM EST [facility] Visit [facility] [address] [address] Lisbeth Palacio MD [address] [place] [address] documented as of this encounter Visit Diagnoses Diagnosis Environmental allergies Other allergy, other than to medicinal agents documented in this encounter Care Teams Compressed Yeast Supervisor Relationship Specialty Start Date End Date Lisbeth Palacio MD [address] [place] [address] PCP - General Pediatrics 06/08/25 documented as of this encounter
--- OUTSIDE RECORDS SUMMARY | 2025-06-12 17:20 | XMS_ITS | Encounter Summary ---
Author Organization [facility] Address [address] [place] [address] Phone Care Team Providers Care Cable Layer Name Role Phone Lisbeth Palacio MD Primary Care Provider [phone] Reason for Visit * Reason Comments Med Refill Encounter Details Date Type Department Care Team ([facility] st Contact Info) Description 06/17/2023 [facility]ill [facility] [address] [address] Azul Luo MD [address] [place] [address] Lower abdominal pain Social History Tobacco Use Types Packs/Day Years [...] Telephone Encounter - Azul Luo MD - 06/17/2023 8:35 AM EST Refill sent to pharmacy on record * Telephone Encounter - Jazmin Gilbert - 06/17/2023 8:29 AM EST Request for dicyclomine 10 mg cap [facility] 06/25/22 Last rf 04/19/23 documented in this encounter Plan of Treatment Upcoming Encounters Date Type Department Care Team (Late st Contact Info) Description 06/15/2026 9:30 AM EST [facility] Visit [facility] [address] [address] Lisbeth Palacio MD [address] [place], [place] [address] [address] documented as of this encounter Visit Diagnoses Diagnosis Lower abdominal pain Abdominal pain, other specified site documented in this encounter Care Teams Cable Layer Relationship Specialty Start Date End Date Lisbeth Palacio MD [address] [place] [address] PCP - General Pediatrics 06/08/25 documented as of this encounter
[2025-06-12 17:30] LABS: Erythrocyte Sedimentation Rate 3 MM/HR (0-20)
[2025-06-12 17:53] VITALS: BP 147/74; PULSE 110; RESP 18; TEMP 36.2; O2SAT 98
== END 2025-06-12 17:45 | disposition home or self-care (01) ==
PROVIDERS: Physician Assistant; Emergency Provider Emergency Medicine Emergency Medical Services; PCP Pediatrics
DX: L03.116 Cellulitis of left lower limb (principal); R21 Rash and other nonspecific skin eruption; M79.672 Pain in left foot; R10.20 Pelvic and perineal pain unspecified side
CPT/HCPCS: 36415; 80053; 84702; 85025; 85652; 86140; 99282; 99283

== ENCOUNTER 2025-07-05 08:01 | Outpatient (AMB) | payer OTHER, SELFPAY ==
--- NOTE | 2025-07-05 08:11 | A.OFFVIS_ITS ---
Vital Signs 3 07/05/25 08:11 Height 5 ft 5 in Weight 180 lb BMI 30.0 Intake Visit Reasons: recurrent rash to her left foot/blister left foot Intake Note: Morena is a 20 year old female who presents today as a new patient for an evaluation of her recurrent rash and blisters of her left foot. Patient reports this has been going on for about 1 year and she was prescribed cephalexin by urgent care and her pcp prescribed her mupirocin and she was also prescribed levofloxacin at the ED. After her last dose of antibiotics the rash and blisters have healed. She denies experiencing any pain at this time. Allergies soy Allergy (Verified 06/12/25 16:07) Unknown HPI Comments Details: Chief Complaint The patient presents with a recurring left foot condition characterized by blisters, which has been ongoing for approximately one year. History of Present Illness The patient is a 20 year old female presenting with a recurring left foot infection. Her symptoms began approximately one year ago after she was in [place] and scratched her foot on a rug, after which she has had recurrent blisters. The episodes recur every few weeks and present as a fluid-filled blister that drains. She was seen in the emergency room about three weeks ago and has since finished a course of antibiotics (levaquin). She has previously used mupirocin cream as per her PCP. Review of Systems Const All systems reviewed & are unremarkable except as noted in HPI and below Physical Exam Exam Exam: Diagnostic results Pathology results Physical Exam - Integumentary/Foot: The affected area on the foot is currently improved. - Circular spots and peeling are noted on the plantar surface. - Skin scrapings were obtained from the area for culture. Vital Signs: BMI result Body Mass Index 30.0 Extrem Other: *Bilateral Lower Extremity Focused Exam Vascular: DP/PT 2/4, CFT<3s to all digits, TG wram to cool, no pedal edema Derm: annular scaling with de-epithelializing skin to plantar left forefoot worst to the 5th MTP. No erythema, drainage, or clinical signs of cellulitis. Neuro: Protective sensation grossly intact to bilateral lower extremities MSK: No tenderness on palpation of the plantar left foot. Assessment & Plan Assessment & Plan (1) Tinea pedis: Code(s): B35.3 - Tinea pedis Category: Medical Qualifiers: Laterality: left Qualified Code(s): B35.3 - Tinea pedis Plan: * The differential diagnosis for the recurring abscess includes a retained foreign body from the initial injury or a secondary bacterial infection complicating a primary fungal infection. * A skin scraping was sent to the lab for culture to identify any fungal growth, though it may be false-negative since the infection most recently resolved. * A referral to an Infectious Disease specialist may be considered depending on culture results. * Rx Clotrimazole (2) Foot abscess, left: Code(s): L02.612 - Cutaneous abscess of left foot Category: Medical Plan: * If the abscess recurs, the patient is instructed to return immediately for a fluid culture, which provides faster results. * An MRI to rule out a foreign body will be considered if the condition does not improve, but it is deferred for now due to the low likelihood of a positive finding without active inflammation. Plan Patient Instructions - Apply the new cream to the bottom of your foot every day after you shower. - If the foot is not getting better after one week, start applying the cream twice a day, once in the morning and once at night. - If you notice blisters with fluid returning, come back to the clinic right away so a sample of the fluid can be taken. - You have a follow-up appointment scheduled in about three weeks. Counseling The patient was counseled on the two likely causes of her recurrent foot issue: a retained foreign body or a chronic fungal infection leading to secondary bacterial infections. The rationale for initiating treatment with an antifungal cream was explained, as well as the plan to obtain a fluid culture if the abscess recurs. The possibility of needing an MRI or a referral to an Infectious Disease specialist in the future was also discussed. Orders: Orders 2 Fungus Cult Hair/Skin/Nail Today B35.3 - Tinea pedis Medications: New 2 clotrimazole-betamethasone 1-0.05 % apply to left foot once a day 1 appl topical DAILY 15 grams 3RF athlete's foot 4 weeks B35.3 - Tinea pedis Discontinued 2 levofloxacin Discontinued Reason: Patient Completed Course 750 mg PO Q24H 7 tabs 0RF Coding Level of Care Code New Pt Level 4 (15542) Diagnoses Tinea pedis of left foot B35.3 Laterality: left Foot abscess, left L02.612 Time Spent (min) 35
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
--- OUTSIDE RECORDS SUMMARY | 2025-07-05 08:15 | XMS_ITS | Encounter Summary ---
Author Organization [facility] Address [address] [place] [address] Phone Care Team Providers Care Printing Mechanist Name Role Phone Lisbeth Palacio MD Primary Care Provider [phone] Encounter Details Date Type Department Care Team (Late st Contact Info) Description 12/08/2017 Conversion Encounter [facility] [address] [address] Jamshid Ovalle MD Social History Tobacco Use [...] AM EST Office Visit [facility] [address] [address] Lisbeth Palacio MD [address] [place] [address] documented as of this encounter Visit Diagnoses Not on filedocumented in this encounter Care Teams Printing Mechanist Relationship Specialty Start Date End Date Lisbeth Palacio MD [address] [place] [address] PCP - General Pediatrics 06/08/25 documented as of this encounter
--- OUTSIDE RECORDS SUMMARY | 2025-07-05 08:15 | XMS_ITS | Encounter Summary ---
Author Organization [facility] Address [address] [place] [address] Phone Care Team Providers Care Gas Scrubber Operator Name Role Phone Lisbeth Palacio MD Primary Care Provider [phone] Reason for Visit * Reason Comments Med Refill Encounter Details Date Type Department Care Team ([facility] st Contact Info) Description 09/01/2020 Refill [facility] [address] [address] Azul Luo MD [address] [place] [address] Dysmenorrhea Social History Tobacco Use Types Packs/Day [...] AM EST Office Visit [facility] [address] [address] Lisbeth Palacio MD [address] [place] [address] documented as of this encounter Visit Diagnoses Diagnosis Dysmenorrhea documented in this encounter Care Teams Gas Scrubber Operator Relationship Specialty Start Date End Date Lisbeth Palacio MD [address] [place] [address] PCP - General Pediatrics 06/08/25 documented as of this encounter
--- OUTSIDE RECORDS SUMMARY | 2025-07-05 08:16 | XMS_ITS | Encounter Summary ---
Author Organization [facility] Address [address] [place] [address] Phone Care Team Providers Care Log Yard Derrick Operator Name Role Phone Lisbeth Palacio MD Primary Care Provider [phone] Reason for Visit * Reason Comments Med Refill Encounter Details Date Type Department Care Team ([facility] st Contact Info) Description 06/17/2023 Refill [facility] [address] [address] Azul Luo MD [address] [place] [address] Lower abdominal pain Social History Tobacco Use [...] AM EST Office Visit [facility] [address] [address] Lisbeth aPlacio MD [address] [place], [place] [address]wick [place] [address] documented as of this encounter Visit Diagnoses Diagnosis Lower abdominal pain Abdominal pain, other specified site documented in this encounter Care Teams Log Yard Derrick Operator Relationship Specialty Start Date End Date Lisbeth Palacio MD [address] [place] [address] PCP - General Pediatrics 06/08/25 documented as of this encounter
--- OUTSIDE RECORDS SUMMARY | 2025-07-05 08:16 | XMS_ITS | Encounter Summary ---
Author Organization [facility] Address [address] [place] [address] Phone Care Team Providers Care Second Baker Name Role Phone Lisbeth Palacio MD Primary Care Provider Reason for Visit * Reason Comments Med Refill Encounter Details Date Type Department Care Team ([facility] st Contact Info) Description 05/27/2023 Refill [facility] [address] [address] Azul Luo MD [address] [place] [phone] Environmental allergies Social History Tobacco Use Types [...] Refill request for Fexofenadine 180 mg Last [facility] 06/25/22 Refilled 03/12/23 Please review documented in this encounter Plan of Treatment Upcoming Encounters Date Type Department Care Team (Late st Contact Info) Description 06/15/2026 9:30 AM EST Office Visit [facility] [address] [address] Lisbeth Palacio MD [address] [place] [address] documented as of this encounter Visit Diagnoses Diagnosis Environmental allergies Other allergy, other than to medicinal agents documented in this encounter Care Teams Second Baker Relationship Specialty Start Date End Date Lisbeth Palacio MD [address] [place] [address] PCP - General Pediatrics 06/08/25 documented as of this encounter
--- OUTSIDE RECORDS SUMMARY | 2025-07-05 08:16 | XMS_ITS | Encounter Summary ---
Author Organization [facility] Address [address] [place] [address] Phone Care Team Providers Care Chief Clinical Dietitian Name Role Phone Lisbeth Palacio MD Primary Care Provider [phone] Reason for Visit * Reason Onset Date Comments Med Refill 10/05/2022 Encounter Details Date Type Department Care Team ([facility] st Contact Info) Description 10/05/2022 Refill [facility] [address] [address] Azul Luo MD [address] [place] [address] Environmental allergies Social History Tobacco Use Types [...] AM EST Office Visit [facility] [address] [place] [address] [address] Lisbeth Palacio MD [address] [place] [address] documented as of this encounter Visit Diagnoses Diagnosis Environmental allergies Other allergy, other than to medicinal agents documented in this encounter Care Teams Chief Clinical Dietitian Relationship Specialty Start Date End Date Lisbeth Palacio MD [address] [place] [address] PCP - General Pediatrics 06/08/25 documented as of this encounter
--- OUTSIDE RECORDS SUMMARY | 2025-07-05 08:16 | XMS_ITS | Encounter Summary ---
Author Organization [facility] Address [address] [place] [address] Phone Care Team Providers Care Graduate Student Name Role Phone Lisbeth Palacio MD Primary Care Provider [phone] Reason for Visit * Reason Onset Date Comments Med Refill 06/02/2025 Encounter Details Date Type Department Care Team ([facility] st Contact Info) Description 06/02/2025 Refill [facility] [address] [address] Azul Luo MD [address] [place] [address] Environmental allergies Social History Tobacco Use Types [...] AM EST Office Visit [facility] [address] [address] Lisbeth Palacio MD [address] [place] [address] [phone] documented as of this encounter Visit Diagnoses Diagnosis Environmental allergies Other allergy, other than to medicinal agents documented in this encounter Care Teams Graduate Student Relationship Specialty Start Date End Date Lisbeth Palacio MD [address] [place] [place] [address] PCP - General Pediatrics 06/08/25 documented as of this encounter
--- OUTSIDE RECORDS SUMMARY | 2025-07-05 08:16 | XMS_ITS | Encounter Summary ---
Author Organization [facility] Address [address] [place] [address] Phone Care Team Providers Care Independent Video Producer Name Role Phone Lisbeth Palacio MD Primary Care Provider [phone] Reason for Visit * Reason Onset Date Comments Med Refill 08/05/2021 Sleep Study 08/05/2021 Encounter Details Date Type Department Care Team ([facility] st Contact Info) Description 08/05/2021 Refill [facility] [address] [address] Azul Luo MD [address] [place] [address] Dysmenorrhea Social History Tobacco Use Types Packs/Day [...] - 09/29/2021 9:58 AM EST Response from [facility] Sleep Medicine appt on 11/03/21 @ 7:45 pm 1 parent must be with ronna Auguste. LM for mom OMAR Wu. * Telephone Encounter - Jazmin Gilbert - 09/20/2021 8:36 AM EST Form faxed to [facility] [phone] * Telephone Encounter - Azul Luo MD [...] a year supply * Telephone Encounter - Camilal Segura MD - 08/07/2021 8:39 AM EST [...] AM EST Office Visit [facility] [address] [address] Lisbeth Palacio MD [address] [place] [address] documented as of this encounter Visit Diagnoses Diagnosis Dysmenorrhea documented in this encounter Care Teams Independent Video Producer Relationship Specialty Start Date End Date Lisbeth Palacio MD [address] [place] [address] PCP - General Pediatrics 06/08/25 documented as of this encounter
--- OUTSIDE RECORDS SUMMARY | 2025-07-05 08:16 | XMS_ITS | Encounter Summary ---
Author Organization [facility] Address [address] [place] [address] Phone Care Team Providers Care Repertoire Manager Name Role Phone Lisbeth Palacio MD Primary Care Provider [phone] Encounter Details Date Type Department Care Team ([facility] st Contact Info) Description 06/09/2025 Results [facility]Up [facility] [address] [place] [address] [address] Yamini Goodman CMA [address] [place] [address] Social History Tobacco Use Types Packs/Day Years [...] AM EST Office Visit [facility] [address] [address] Lisbeth Palacio MD [address] [place] [address] documented as of this encounter Visit Diagnoses Not on filedocumented in this encounter Care Teams Repertoire Manager Relationship Specialty Start Date End Date Lisbeth Palacio MD [address] [place] [address] PCP - General Pediatrics 06/08/25 documented as of this encounter
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
--- OUTSIDE RECORDS SUMMARY | 2025-07-05 08:16 | XMS_ITS | Clinical Summary ---
Author Organization [facility] Address [address] [place] [address] Care Team Providers Care Testing Lead Name Role Phone Unavailable Primary Care Provider Unavailabl e Social History Tobacco Use Types Packs/Day Years Used Date Smoking Tobacco: Never Assessed Comments Unknown Sex and Gender Information Value Date Recorded Sex Assigned at Not on file Legal Sex Female 1:40 AM EST Gender Identity Not on file Sexual Orientation Not on file Plan of Treatment Health Maintenance Due Date Last Done Comments Gonorrhea/Chlamydia Screening 2005 Varicella Vaccines (1 of 2 - 13+ 2-dose series) 2018 HPV Vaccines (1 - 3-dose series) 2020 Meningococcal B Vaccine (1 o f 2 - Standard) 2021 DTaP,Tdap,and Td Vaccines (1 - Tdap) 2024 Hepatitis B Vaccines (1 of 3 - 19+ 3-dose series) 2024 Depression Screening 07/22/2024 COVID-19 Vaccine (1 - 2024-2 6 season) 2025 Influenza Vaccine (#1) 2025 RSV Immunization Adult Patie nts (1 - 1-dose 75+ series) 2080 HIB Vaccines Aged Out No longer eligi ble based on patient's age to complete this topic Hepatitis A Vaccines Aged Out No long er eligible based on patient's age to complete this topic IPV Vaccines Aged Out No longer eligi ble based on patient's age to complete this topic MMR Vaccines Aged Out No longer eligi ble based on patient's age to complete this topic Meningococcal ACWY Vaccine Aged Out N o longer eligible based on patient's age to complete this topic Pneumococcal Vaccine: Pediat rics (0 to 5 Years) and At-Risk Patients (6 to 49 Years) Aged Out No longer eligible b ased on patient's age to complete this topic RSV Immunization Patients Un patria 20 months Aged Out No longer eligible b ased on patient's age to complete this topic
== END 2025-07-05 08:27 | disposition home or self-care (01) ==
LOC: HO.HPODS 08:02
PROVIDERS: PCP Pediatrics; Visit Provider Student in an Organized Health Care Education/Training Program
DX: B35.3 Tinea pedis (principal); L02.612 Cutaneous abscess of left foot
CPT/HCPCS: 99204

== ENCOUNTER 2025-07-05 08:01 | Outpatient (REF) | payer OTHER, SELFPAY | END 2025-07-05 08:02 | disposition home or self-care (01) | LOC: HO.LNP 08:01 | PROVIDERS: PCP Pediatrics; Visit Provider Student in an Organized Health Care Education/Training Program | DX: B35.3 Tinea pedis (principal); L02.612 Cutaneous abscess of left foot | CPT/HCPCS: 87101; 87220 ==